=== PATIENT | female | born 1965 | race Caucasian/White ===

== ENCOUNTER 2024-03-28 09:55 | Outpatient (CLI) | payer OTHER, SELFPAY ==
--- OUTSIDE RECORDS SUMMARY | 2024-03-28 10:00 | XMS_ITS | Continuity of Care Document ---
Author Name Unknown Organization [facility] Address [address] [place] [address] Insurance Providers Payer Plan Claims Address Claims Phone Policy Number Group Number Relation Employer Guarantor Name Guarantor Guarantor Address Guarantor Phone Cigna [id number] Self Keisha Bob 1965 [address] [place] [address] [employer] [address], [place] [address] [id number] Self Keisha Bob [address] [place] [id number] Problems Unknown Problems Results No Results Allergies, adverse reactions, alerts No known allergies and adverse reactions Medications No administered medications reported Vital Signs Date Vital Result Comment 06/02/2023 Body Height [id number] m Body Weight 70.720901058519 kg Body Mass Index 24.28 kg/m2 Social History No smoking Hx information available
--- OUTSIDE RECORDS SUMMARY | 2024-03-28 10:00 | XMS_ITS | Clinical Summary ---
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 8 tablet 12/24/2021 Active Active Problems No known active problems Immunizations Name Administration Dates Next Due COVID-19 (Pfizer Limestone 12 yrs+) (CVX-208) 021,03/29/2021 Influenza (Flucelvax) MDCK, PF, quad (CVX-171) 1 Influenza PF Tri (CVX - 140) 08/25/2016 Influenza Tri (CVX - 141) 09/10/2015 Influenza, (Afluria Fluarix Flulaval Fluzone) quad, PF (CVX-150) 08/10/2020 Influenza, (Afluria Fluzone) quad, PF, 6-35 mo (CVX-161) 08/20/2017 Td, adsorbed, PF, adult, Lf, unspecified (CVX-19 6) 07/22/2015 Tdap (ADACEL BOOSTRIX) (CVX-115) 06/27/2010 Social History Tobacco Use Types Packs/Day Years Used Date Smoking Tobacco: Never Smokeless Tobacco: Never Alcohol Use Standard Drinks/Week Comments No 0 (1 standard drink = 0.6 oz pur e alcohol) Intimate Partner Violence Answer Date R ecorded Insults You Not on file 02/19/2021 Threatens You Not on file 02/19/2021 Screams at You Not on file 02/19/2021 Physically Hurt Not on file 02/19/2021 Intimate Partner Violence Score Not on file 02/19/2021 Alcohol Use Answer Date Recorded Alcohol Use Status No 12/24/2021 Stress Answer Date Recorded Stress in your Life Not on file 02/19/2021 Dealing with Stress Not on file 02/19/2021 Sex and Gender Information Value Date Recorded Sex Assigned at Female 12/23/2021 1:29 PM 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 Gender Identity Female 12/23/2021 1:29 PM 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 Sexual Orientation Not on file Last Filed Vital Signs Vital Sign Reading Time Taken Comments Blood Pressure 118/84 12/24/2021 10:03 AM 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 Pulse 79 12/24/2021 10:03 AM 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 Temperature 36.5 ??C (97.7 ??F) 12/24/2021 1 0:03 AM 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 Respiratory Rate 12 12/24/2021 10:0 3 AM 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 Oxygen Saturation 98% 12/24/2021 10: 03 AM 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 Inhaled Oxygen Concentration - - Weight 78.8 kg (173 lb 12.8 oz) 022 10:03 AM 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 Height 170.2 cm (5' 7) 12/24/2021 10:0 3 AM 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 Body Mass Index 27.22 12/24/2021 10:03 AM 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 Plan of Treatment Health Maintenance Due Date Last Done Comments Dental Cleaning/Exam 1965 Cervical Cancer Screening 1982 Hepatitis B Immunization (1 of 3 - 19+ 3-dose series) 1985 Colorectal Cancer Screening 1996 Zoster Immunization (1 of 2) 2016 Breast Cancer Screening 09/13/2020 09/13/2018 Covid-19 Immunization ( season) 2023 04/19/2021, 03/29/2021 Influenza Immunization (Season Ended) 2024 08/10/2020, 08/12/2018, 08/20/2017 Tetanus (Tdap or Td) Immunization 07/22/2025 07/22/2015, 06/27/2010 HIB Immunization Aged Out No longer e ligible based on patient's age to complete this topic HPV Immunization Aged Out No longer e ligible based on patient's age to complete this topic Hepatitis A Immunization Aged Out No longer eligible based on patient's age to complete this topic Pneumococcal: Ped (0 to 5 Yrs) and At-Risk Member (6 to 64 Yrs) Aged Out No longer eligible b ased on patient's age to complete this topic Polio Immunization Aged Out No longer eligible based on patient's age to complete this topic
--- OUTSIDE RECORDS SUMMARY | 2024-03-28 10:00 | XMS_ITS | Continuity of Care Document ---
Author Name Unknown Address [address] [place] [id number] Phone [phone] Organization [facility], [facility] Address [address] [facility] [address] [place] [address] Assessment No assessment recorded. Plan of Treatment Reminders Order Date Submit Date Provider Last Modified By Organization Details Last Modified Time Details Appointments Any 30 024 09:30AM HILARIA MARTINEZ AND, DO Not available Not available Not available Lab None record ed. Referral None record ed. Procedures None record ed. Surgeries None record ed. Imaging None record ed. Medication Orders None record ed. Patient TargetsNo targets recorded. Patient InstructionsNo instructions recorded. Reason for Referral Behavioral Health Tech Referral for Shahzad ateral tinnitus Patient has suffered with tinnitus x 1yr. Previous work-up without etiology. Please send results to Dr Hilaria [place], (fax) Referring Physician: Hilaria [place], Family Medicine, Encounter Date: 02/25/2024 Results Created Date Observation Date Name Description Value Unit Range Abnormal Flag LastModifiedBy Organization Detail LastModifiedTime 02/25/20 24 elect rocar diogr am No observ ation record ed. [email or web address] Not Available 2023 18:40:12 03/08/20 24 body compo sitio n jaspal sis (PROC ) No observ ation record ed. [email or web address] Not Available 03/10/2024 14:01:22 Result Notes None recorded. Procedures Surgical History Date Name Laterality Status Provider Name and Address Organization Details Recorded Time 11/09/19 12 Partial Hysterectomy completed HILARIA RANDOLPH DO [address] [place] [address],[address], [place], [address], [facility] 02/25/2024 14:29:35 11/09/19 12 oophorectomy completed HILARIA RANDOLPH [address] [place] [address],[facility], [place], [address], [facility] 02/25/2024 14:30:30 Imaging Results None recorded. Procedure Notes None recorded. Medical Equipment None Reported. Allergies No known drug allergies Medications Name Sig Start Date Stop Date Status Note LastModified by Organization Details LastModified Time prednisone 20 mg tablet TAKE 2 TABLETS (40 MG) BY MOUTH DAILY FOR 5 DAYS 02/24 completed Not Available Not Available Not Available albuterol sulfate HFA 90 mcg/actuati on aerosol inhaler Albuterol sulfate HFA (90mcg/pu ff): Inhale 2 puffs every 6 hours as needed for wheezing. If symptoms are severe, may use as often as every 4 hours.* active Not Available Not Available No t Available tobramycin 0.3 %-dexametha sone 0.1 % eye drops,suspe nsion INSTILL 1 DROP INTO LEFT EYE THREE TIMES A DAY FOR SEVEN DAYS 02/24 completed Not Available Not Available Not Available Paxlovid 300 mg (150 mg x 2)-100 mg tablets in a dose pack TAKE 2 TABLETS OF NIRMATREL VIR AND 1 TABLET OF RITONAVIR TWICE A DAY (MORNING AND EVENING) FOR 5 DAYS. TAKE ALL 3 TABLETS AT THE SAME TIME WITH OR WITHOUT FOOD. DO NOT CUT CRUSH OR CHEW TABLETS. TAKE EXACTLY DIRECTED. YOU MUST FINISH THE ENTIRE COURT OF MEDICATIO N EVEN IF YOU FEET BETTER AFTER THE FIRST FEW DAYS OF TREATMENT .* 02/24 completed Not Available Not Available Not Available Vitals None Recorded Social History Question Answer Notes LastModified by Organizat ion Details LastModified Time Tobacco Smoking Status Never Smoker HILARIA RANDOLPH [address] [place] [address],[facility], [place], [address], [facility] 02/25/2024 14:24:14 Do You Have An Advance Directive? Yes [email or web address] Information not available 02/25/2024 What Is Your Level Of Alcohol Consumption? Occasional [email or web address] Information not available 02/25/2024 How Many Times Per Week Do You Consume Alcohol? Less Than 1 Time Per Week [email or web address] Information not available 02/25/2024 Are You Blind Or Do You Have Difficulty Seeing? No Last Eye Exam Within The Year [email or web address] Information not available 02/25/2024 Is Blood Transfusion Acceptable In An Emergency? Yes [email or web address] Information not available 02/25/2024 What Is Your Level Of Caffeine Consumption? Occasional Tea, Not Coffee Option [email or web address] Information not available 02/25/2024 What Is Your Code Status? Full Code [email or web address] Information not available 02/25/2024 Are You Currently Employed? Yes [email or web address] Information not available 02/25/2024 Are You Deaf Or Do You Have Serious Difficulty Hearing? No [email or web address] Information not available 02/25/2024 What Type Of Diet Are You Following? REGULAR [email or web address] Information not available 02/25/2024 Do You Have A Directive To Physicians? No [email or web address] Information not available 02/25/2024 What Is The Highest Grade Or Level Of School You Have Completed Or The Highest Degree You Have Received? [id number] [id number] Information not available 02/25/2024 Who Is Your Employer? [employer] [email or web address] Information not available 02/25/2024 What Is Your Occupation? [employer] [email or web address] Information not available 02/25/2024 Which Of Your Hands Is Dominant? Right [email or web address] Information not available 02/25/2024 Do You Work In Healthcare? No [email or web address] Information not available 02/25/2024 Do You Have A Medical Power Of [employer] Products Assembler? No [email or web address] Information not available 02/25/2024 What Was The Date Of Your Most Recent Tobacco Screening? 02/25/2024 [email or web address] Information not available 02/25/2024 Do You Have A Patient Advocate? No [email or web address] Information not available 02/25/2024 What Is Your Relationship Status? [email or web address] Information not available 02/25/2024 Are You Sexually Active? Yes [email or web address] Information not available 02/25/2024 Do You Use Any Illicit Or Recreational Drugs? No [email or web address] Information not available 02/25/2024 Have You Recently Traveled Abroad? No [email or web address] Information not available 02/25/2024 Sex: Female Functional Status Question Answer Note LastModified by Organizat ion Details LastModified Time Do you have difficulty walking or climbing stairs? No [email or web address] Information not available 02/25/2024 Do you have transportation difficulties? No Information not available 02/25/2024 Are you able to walk? YESWOREST [email or web address] Information not available 02/25/2024 Do you have difficulty doing errands alone? No Information not available 02/25/2024 Are you able to care for yourself? Yes [email or web address] Information not available 02/25/2024 Do you have difficulty dressing or bathing? No [email or web address] Information not available 02/25/2024 Mental Status None recorded. Family History Relationship Description Onset Age of this Age Resolved Age Notes Father Parkinson's disease 62 Medical History Condition Response Headaches Y Gynecological History Statement/Question Response STIs/STDs N If Post Menopausal, Age at Menopause 46 HPV Vaccine N Sexual Problems? Y Age at First Child 23 Sexually Active? Y Obstetrics History GPAL:G 2 P 0 0 0 0 Past Encounters Encounter ID Performer Location Encounter Start Date Encounter Closed Date Diagnosis/Indication Diagnosis SNOMED-CT Code 43 HILARIA Adams, [facility] [address] [place] [id number] 02/16/2024 15:58:04 02/16/2024 18:02:26 Health Concerns Section Related Observation LastModified by Organization Detai ls LastModified Time None Recorded Concern Status LastModified by Organization Details LastModified Time None Recorded Payers Encounter Date Sequence Insurance Name Policy Number Policy Gonzalez Covered Member ID Gonzalez Member ID Guarantor Name 02/16/2024 1 *SELF PAY* Maryse Rojas Notes Date Note Type Note Provider Name and Address Organization Details Recorded Time 02/16/2024 text/html HPI Notes: Jacque is a 58yo patient who presents for a meet and greet to consider establishing care. She does not have current or acute concerns, however, she has been frustrated with lack of access and inability to follow-up with the same continuity physician. She currently is followed by [facility], but she has not recently scheduled her primary care visit or wellness visit. However, she reports that she is due for her care. In addition, she has had difficulty with recurrent sinusitis and tinnitus in the past. HILARIA RANDOLPH, [address] [place] [address],[address], [place], [address], [facility] 02/17/2024 15:25:19 OBGyn Episode No OBEpisode recorded.
--- OUTSIDE RECORDS SUMMARY | 2024-03-28 10:00 | XMS_ITS | Data Portability ---
Author Name Unknown Address [address] [place] [address] Phone [phone] Organization [place] [facility], [facility] Address [address] [place] [address] Assessment No assessment recorded. Plan of Treatment Reminders Order Date Submit Date Provider Last Modified By Organization Details Last Modified Time Details Appointments Any 30 2023 09:30A M VAUGHN MARTINEZ AND, DO Not available Not available Not available Lab CBC w/ auto diff 2023 024 [facility] [address] [place] [address], [address], 02/28/2024 23:06:00 CMP, serum or plasma [address] [facility], [address] [place] [address], [id number], 02/28/2024 23:06:01 TSH, ultra-se nsitive, serum 2023 024 [facility] [address] [place] [address], [address], 02/28/2024 23:06:04 vitamin D, 25-hydro xy, total, serum [address] [facility], [address] [place] [address], [address], 02/28/2024 23:06:03 lipid panel, serum [address] [facility], [address] [place] [address], [address], 02/28/2024 23:06:02 HbA1c (hemoglo bin A1c), blood 2023 024 [facility] [address] [place], [address], 02/28/2024 23:06:02 lipoprot ein a, qn, serum 2023 024 [facility] [address] [place], [address], 02/28/2024 23:06:03 apolipop rotein B (apo B), serum 2023 024 [facility] ([place] [address] [place], [address], 02/28/2024 23:06:04 hepatiti s C Ab, qual, IA, serum or plasma 2023 024 [email or web address] [address] [place], [address], 03/04/2024 14:48:54 multi-ca ncer early detectio n, targeted gene methylat ion analysis , plasma cell-ti e DNA 2023 024 [email or web address] Not available 02/25/2024 15:30:31 cytology study, smear or scraping , cervical or vaginal 2023 024 [facility] ([place] [address] [place], [address], 03/01/2024 16:09:02 Referral audiolog ist referral - Please send results to Dr Vaughn tillman, [phone] (fax) 2023 024 [facility], [address], [place], [address], 02/25/2024 16:13:09 Procedures colonosc opy screenin g (PROC) - Please send results to Dr Vaughn tillman, (fax). For any question s, call 2023 024 [facility], [address] [place], [address], 03/18/2024 10:33:28 Surgeries None recorded . Imaging None recorded . Medication Orders None recorded . Patient TargetsNo targets recorded. Patient InstructionsNo instructions recorded. 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 Previous work-up without etiology. Please send results to Dr Vaughn Randolph, (fax) Referring Physician: Vaughn Randolph, Family Medicine, Encounter Date: 02/25/2024 Results Created Date Observation Date Name Description Value Unit Range Abnormal Flag LastModifiedBy Organization Detail LastModifiedTime 02/25/20 24 02/27/2024 HCV ANTIB CARLENE hep C virus Ab Non Reacti ve non reacti ve Not Available [facility] ([facility]) [address] [facility], [place], [address], 02/27/2024 10:09:00 02/25/20 24 02/26/2024 ALTON EN AUTHO RIZAT ION written authorizatio n Rodolfo n Author izkeara n Receiv ed. Not Available [facility] ([facility]) [address] [facility], [place], [address], 02/27/2024 10:09:01 02/25/20 24 02/26/2024 CBC WITH DIFFE RENTI AL/PL ATELE T WBC 6.5 x10e3 /uL 3.4-10 .8 Not Available [facility] ([facility]) [address] [facility], [place], [address], 02/28/2024 23:06:00 02/25/20 24 02/26/2024 CBC WITH DIFFE RENTI AL/PL ATELE T RBC 5.05 x10e6 /uL 3.77-5 .28 Not Available [facility] ([facility]) [address] [facility], [place], [address], 02/28/2024 23:06:00 02/25/20 24 02/26/2024 CBC WITH DIFFE RENTI AL/PL ATELE T hemoglobin 14.7 g/dL 11.1-1 5.9 Not Available [facility] ([facility]) [address] [facility], [place], [address], 02/28/2024 23:06:00 02/25/20 24 02/26/2024 CBC WITH DIFFE RENTI AL/PL ATELE T hematocrit 45.0 % 34.0-4 6.6 Not Available [facility] ([facility]) [address] [place], [address], 02/28/2024 23:06:00 02/25/20 24 02/26/2024 CBC WITH DIFFE RENTI AL/PL ATELE T MCV 89 fL 79-97 Not Available [facility] ([facility]) [address] [place], [address], 02/28/2024 23:06:00 02/25/20 24 02/26/2024 CBC WITH DIFFE RENTI AL/PL ATELE T MCH 29.1 pg 26.6-3 3.0 Not Available [facility] ([facility]) [address] [place], [address], 02/28/2024 23:06:00 02/25/20 24 02/26/2024 CBC WITH DIFFE RENTI AL/PL ATELE T MCHC 32.7 g/dL 31.5-3 5.7 Not Available [facility] ([facility]) [address] [place], [address], 02/28/2024 23:06:00 02/25/20 24 02/26/2024 CBC WITH DIFFE RENTI AL/PL ATELE T RDW 12.5 % 11.7-1 5.4 Not Available [facility] ([facility]) [address] [facility], [place], [address], 02/28/2024 23:06:00 02/25/20 24 02/26/2024 CBC WITH DIFFE RENTI AL/PL ATELE T platelets 181 x10e3 /uL 150-45 0 Not Available [facility] ([facility]) [address] [facility], [place], [address], 02/28/2024 23:06:00 02/25/20 24 02/26/2024 CBC WITH DIFFE RENTI AL/PL ATELE T neutrophils 44 % not estab. Not Available [facility] ([facility]) [address] [facility], [place], [address], 02/28/2024 23:06:00 02/25/20 24 02/26/2024 CBC WITH DIFFE RENTI AL/PL ATELE T lymphs 41 % not estab. Not Available [facility] ([facility]) [address] [facility], [place], [address], 02/28/2024 23:06:00 02/25/20 24 02/26/2024 CBC WITH DIFFE RENTI AL/PL ATELE T monocytes 8 % not estab. Not Available [facility] ([facility]) [address] [facility], [place], [address], 02/28/2024 23:06:00 02/25/20 24 02/26/2024 CBC WITH DIFFE RENTI AL/PL ATELE T eos 6 % not estab. Not Available [facility] ([facility]) [address] [place], [address], 02/28/2024 23:06:00 02/25/20 24 02/26/2024 CBC WITH DIFFE RENTI AL/PL ATELE T basos 1 % not estab. Not Available [facility] ([facility]) [address] [facility], [place], [address], 02/28/2024 23:06:00 02/25/20 24 02/26/2024 CBC WITH DIFFE RENTI AL/PL ATELE T immature cells MORTICIAN SUPPLIES SALES REPRESENTATIVE Not Available [facility] ([facility]) [address] [facility], [place], [address], 02/28/2024 23:06:00 02/25/20 24 02/26/2024 CBC WITH DIFFE RENTI AL/PL ATELE T neutrophils (absolute) 2.9 x10e3 /uL 1.4-7. 0 Not Available [facility] ([facility]) [address] [facility], [place], [address], 02/28/2024 23:06:00 02/25/20 24 02/26/2024 CBC WITH DIFFE RENTI AL/PL ATELE T lymphs (absolute) 2.7 x10e3 /uL 0.7-3. 1 Not Available [facility] ([facility]) [address] [place], [address], 02/28/2024 23:06:00 02/25/20 24 02/26/2024 CBC WITH DIFFE RENTI AL/PL ATELE T monocytes(ab solute) 0.5 x10e3 /uL 0.1-0. 9 Not Available [facility] ([facility]) [address] [place], [address], 02/28/2024 23:06:00 02/25/20 24 02/26/2024 CBC WITH DIFFE RENTI AL/PL ATELE T eos (absolute) 0.4 x10e3 /uL 0.0-0. 4 Not Available [facility] ([facility]) [address] [place], [address], 02/28/2024 23:06:00 02/25/20 24 02/26/2024 CBC WITH DIFFE RENTI AL/PL ATELE T baso (absolute) 0.1 x10e3 /uL 0.0-0. 2 Not Available [facility] ([facility]) [address] [facility], [place], [address], 02/28/2024 23:06:00 02/25/20 24 02/26/2024 CBC WITH DIFFE RENTI AL/PL ATELE T immature granulocytes 0 % not estab. Not Available [facility] ([facility]) [address] [facility], [place], [address], 02/28/2024 23:06:00 02/25/20 24 02/26/2024 CBC WITH DIFFE RENTI AL/PL ATELE T immature grans (abs) 0.0 x10e3 /uL 0.0-0. 1 Not Available [facility] ([facility]) [address] [facility], [place], [address], 02/28/2024 23:06:00 02/25/20 24 02/26/2024 CBC WITH DIFFE RENTI AL/PL ATELE T NRBC MORTICIAN SUPPLIES SALES REPRESENTATIVE Not Available [facility] ([facility]) [address] [facility], [place], [address], 02/28/2024 23:06:00 02/25/20 24 02/26/2024 CBC WITH DIFFE RENTI AL/PL ATELE T hematology comments: MORTICIAN SUPPLIES SALES REPRESENTATIVE Not Available [facility] ([facility]) [address] [place], [address], 02/28/2024 23:06:00 02/25/20 24 02/26/2024 COMP. METAB OLIC PANEL (14) glucose 92 mg/dL 70-99 Not Available [facility] ([facility]) [address] [place], [address], 02/28/2024 23:06:01 02/25/20 24 02/26/2024 COMP. METAB OLIC PANEL (14) BUN 19 mg/dL 6-24 Not Available [facility] ([facility]) [address] [place], [address], 02/28/2024 23:06:01 02/25/20 24 02/26/2024 COMP. METAB OLIC PANEL (14) creatinine 1.21 mg/dL 0.57-1 .00 above high normal Not Available [facility] ([facility]) [address] [facility], [place], [address], 02/28/2024 23:06:01 02/25/20 24 02/26/2024 COMP. METAB OLIC PANEL (14) eGFR 52 mL/mi n/1.7 3 >59 below low normal Not Available [facility] ([facility]) [address] [facility] [place], [address], 02/28/2024 23:06:01 02/25/20 24 02/26/2024 COMP. METAB OLIC PANEL (14) BUN/creatini ne ratio 16 9-23 Not Available [facility] ([facility]) [address] [facility], [place], [address], 02/28/2024 23:06:01 02/25/20 24 02/26/2024 COMP. METAB OLIC PANEL (14) sodium 138 mmol/ L 134-14 4 Not Available [facility] ([facility]) [address] [facility], [place], [address], 02/28/2024 23:06:01 02/25/20 24 02/26/2024 COMP. METAB OLIC PANEL (14) potassium 4.2 mmol/ L 3.5-5. 2 Not Available [facility] ([facility]) [address] [facility] [place], [address], 02/28/2024 23:06:01 02/25/20 24 02/26/2024 COMP. METAB OLIC PANEL (14) chloride 100 mmol/ L 96-106 Not Available [facility] ([facility]) [address] [facility] [place], [address], 02/28/2024 23:06:01 02/25/20 24 02/26/2024 COMP. METAB OLIC PANEL (14) carbon dioxide, total 23 mmol/ L 20-29 Not Available [facility] ([facility]) [address], [place], [address], 02/28/2024 23:06:01 02/25/20 24 02/26/2024 COMP. METAB OLIC PANEL (14) calcium 9.8 mg/dL 8.7-10 .2 Not Available [facility] ([facility]) [address] [facility], [place], [address], 02/28/2024 23:06:01 02/25/20 24 02/26/2024 COMP. METAB OLIC PANEL (14) protein, total 7.2 g/dL 6.0-8. 5 Not Available [facility] ([facility]) [address] [facility], [place], [address], 02/28/2024 23:06:01 02/25/20 24 02/26/2024 COMP. METAB OLIC PANEL (14) albumin 4.6 g/dL 3.8-4. 9 Not Available [facility] ([facility]) [address] [facility], [place], [address], 02/28/2024 23:06:01 02/25/20 24 02/26/2024 COMP. METAB OLIC PANEL (14) globulin, total 2.6 g/dL 1.5-4. 5 Not Available [facility] ([facility]) [address] [facility], [place], [address], 02/28/2024 23:06:01 02/25/20 24 02/26/2024 COMP. METAB OLIC PANEL (14) A/G ratio 1.8 1.2-2. 2 Not Available [facility] ([facility]) [address] [facility], [place], [address], 02/28/2024 23:06:01 02/25/20 24 02/26/2024 COMP. METAB OLIC PANEL (14) bilirubin, total 0.5 mg/dL 0.0-1. 2 Not Available [facility] ([facility]) [address] [facility] [place], [address], 02/28/2024 23:06:01 02/25/20 24 02/26/2024 COMP. METAB OLIC PANEL (14) alkaline phosphatase 99 IU/L 44-121 Not Available [facility] ([facility]) [address] [facility] [place], [address], 02/28/2024 23:06:01 02/25/20 24 02/26/2024 COMP. METAB OLIC PANEL (14) AST (SGOT) 20 IU/L 0-40 Not Available [facility] ([facility]) [address] [facility] [place], [address], 02/28/2024 23:06:01 02/25/20 24 02/26/2024 COMP. METAB OLIC PANEL (14) ALT (SGPT) 21 IU/L 0-32 Not Available [facility] ([facility]) [address] [place], [address], 02/28/2024 23:06:01 02/25/20 24 02/26/2024 LIPID PANEL cholesterol, total 216 mg/dL 100-19 9 above high normal Not Available [facility] ([facility]) [address] [place], [address], 02/28/2024 23:06:02 02/25/20 24 02/26/2024 LIPID PANEL triglyceride s 110 mg/dL 0-149 Not Available [facility] ([facility]) [address] [place], [address], 02/28/2024 23:06:02 02/25/20 24 02/26/2024 LIPID PANEL HDL cholesterol 58 mg/dL >39 Not Available [facility] ([facility]) [address] [place], [address], 02/28/2024 23:06:02 02/25/20 24 02/26/2024 LIPID PANEL VLDL cholesterol fiordaliza 20 mg/dL 5-40 Not Available [facility] ([facility]) [address] [place], [address], 02/28/2024 23:06:02 02/25/20 24 02/26/2024 LIPID PANEL LDL chol calc ([facility]) 138 mg/dL 0-99 above high normal Not Available [facility] ([facility]) [address] [place], [address], 02/28/2024 23:06:02 02/25/20 24 02/26/2024 LIPID PANEL comment: MORTICIAN SUPPLIES SALES REPRESENTATIVE Not Available [facility] ([facility]) [address] [place], [address], 02/28/2024 23:06:02 02/25/20 24 02/26/2024 HEMOG LOBIN A1C hemoglobin A1C 5.7 % 4.8-5. 6 above high normal Not Available [facility] ([facility]) [address] [place], [address], 02/28/2024 23:06:02 02/25/20 24 02/26/2024 VITAM IN D, 25-HY DROXY vitamin D, 25-hydroxy 38.3 NG/mL 30.0-1 00.0 Not Available [facility] ([facility]) [address] [place], [address], 02/28/2024 23:06:03 02/25/20 24 02/28/2024 LIPOP ROTEI N (A) lipoprotein (A) 24.2 nmol/ L <75.0 Not Available [facility] ([facility]) [address] [place], [address], 02/28/2024 23:06:03 02/25/20 24 02/26/2024 TSH RFX ON ABNOR MAL TO FREE T4 TSH 2.910 uIU/m L 0.450- 4.500 Not Available [facility] ([facility]) [address] [facility], [place], [address], 02/28/2024 23:06:04 02/25/20 24 02/26/2024 APOLI POPRO TEIN B apolipoprote in B 112 mg/dL <90 above high normal Not Available [facility] ([facility]) [address] [facility], [place], [address], 02/28/2024 23:06:04 02/25/20 24 02/26/2024 IGP, APT HPV,R FX 16/18 ,45 HPV aptima Negati ve negati ve Not Available [facility] (Lab) [address] [place] [address], [place], [address], 03/01/2024 16:09:02 02/25/20 24 03/01/2024 IGP, APT HPV,R FX 16/18 ,45 diagnosis: NEGATI VE FOR INTRAE PITHEL IAL LESION OR MALIGN MIGUEL ÁNGEL. Not Available [facility] (Lab) [address] [address], [place], [address], 03/01/2024 16:09:02 02/25/20 24 03/01/2024 IGP, APT HPV,R FX 16/18 ,45 specimen adequacy: Satisf actory for evalua tion. Endoce rvical compon ent may not be Not Available [facility] (Lab) [address] [address], [place], [address], 03/01/2024 16:09:02 02/25/20 24 03/01/2024 IGP, APT HPV,R FX 16/18 ,45 clinician provided ICD10: Z12.4 Not Available [facility] (Lab) [address] [address], [place], [address], 03/01/2024 16:09:02 02/25/20 24 03/01/2024 IGP, APT HPV,R FX 16/18 ,45 performed by: Jean-Claude Nunn Sr, Cytote chnolo gist (ASCP) Not Available [facility] (Lab) [address] [facility] [address], [place], [address], 03/01/2024 16:09:02 02/25/20 24 03/01/2024 IGP, APT HPV,R FX 16/18 ,45 . . Not Available [facility] (Lab) [address] [facility] [address], [place], [address], 03/01/2024 16:09:02 02/25/20 24 03/01/2024 IGP, APT HPV,R FX 16/18 ,45 note: The Pap smear is a screen ing test design ed to aid in the detect ion of Not Available [facility] (Lab) [address] [facility] [address], [place], [address], 03/01/2024 16:09:02 02/25/20 24 03/01/2024 IGP, APT HPV,R FX 16/18 ,45 test methodology: This liquid based ThinPr ep(R) pap test was screen ed with the Not Available [facility] (Lab) [address] [place] [address], [place], [address], 03/01/2024 16:09:02 02/25/20 24 elect rocar diogr am No observ ation record ed. [email or web address] Not Available 2023 18:40:12 03/08/20 24 body compo sitio n jaspal sis (PROC ) No observ ation record ed. [email or web address] Not Available 03/10/2024 14:01:22 Result Notes Documentation Provider Name and Address Organization Details Recorded Time Pdf Report : NIL/HPV negative VAUGHN RANDOLPH DO [address] [place] [address],[address], [place], [address], [facility] 03/01/2024 16:39:17 Procedures Surgical History Date Name Laterality Status Provider Name and Address Organization Details Recorded Time 11/09/19 12 Partial Hysterectomy completed VAUGHN RANDOLPH DO [address] [place] [address],[address], [place], [address], [facility] 02/25/2024 14:29:35 11/09/19 12 oophorectomy completed VAUGHN RANDOLPH DO [address] [place] [address],[address], [place], [address], [facility] 02/25/2024 14:30:30 Imaging Results Imaging Date Name Status LastModified by Organization Details LastModified Time 02/25/2024 electrocardiogram completed [email or web address] In formation not available 02/25/2024 18:40:12 03/08/2024 body composition analysis (PROC) completed [facility] Information not available 03/10/2024 14:01:22 Procedure Notes None recorded. Medical Equipment None [...] Not Available Not Available Not Available Vitals Date Recorded Body height Heart rate Respiratory rate Body temperature Oxygen saturation Oxygen saturation in Arterial blood by Pulse oximetry Body mass index (BMI) Body weight Systolic blood pressure Diastolic blood pressure Systolic blood pressure Diastolic blood pressure Provider Name and Address Organization Details Last Updated DateTime 170.18 cm 74 /min 16 /min 98.2 [degF] 98 % 98 % 26.2 kg/m2 68825.9 3 g 150 mm[Hg] 91 mm[Hg] 127 mm[Hg] 84 mm[Hg] BlancaSilvina Howardareli [facility] 16:26:46 Social History Question Answer Notes LastModified by Organizat ion Details LastModified Time Tobacco Smoking Status Never Smoker VAUGHN TOMASA, DO [address] [place] [address],[address], [place], [address], [facility] 02/25/2024 14:24:14 Do You Have An Advance Directive? Yes [email or web address] Information not available 02/25/2024 What Is Your Level Of Alcohol Consumption? Occasional [email or web address] Information not available 02/25/2024 How Many Times Per Week Do You Consume Alcohol? Less Than 1 Time Per Week [email or web address] Information not available 02/25/2024 Are You Blind Or Do You Have Difficulty Seeing? No Last Eye Exam Within The Year [email or web address] Information not available 02/25/2024 Is Blood Transfusion Acceptable In An Emergency? Yes [email or web address] Information not available 02/25/2024 What Is Your Level Of Caffeine Consumption? Occasional Tea, Not Coffee Option [email or web address] Information not available 02/25/2024 What Is Your Code Status? Full Code [email or web address] Information not available 02/25/2024 Are You Currently Employed? Yes [email or web address] Information not available 02/25/2024 Are You Deaf Or Do You Have Serious Difficulty Hearing? No [email or web address] Information not available 02/25/2024 What Type Of Diet Are You Following? REGULAR [email or web address] Information not available 02/25/2024 Do You Have A Directive To Physicians? No [email or web address] Information not available 02/25/2024 What Is The Highest Grade Or Level Of School You Have Completed Or The Highest Degree You Have Received? WE63391-8 [email or web address] Information not available 02/25/2024 Who Is Your Employer? 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 Right Information not available 02/25/2024 Do You Work In Healthcare? No [email or web address] Information not available 02/25/2024 Do You Have A Medical Power Of Manager Hair? No [email or web address] Information not available 02/25/2024 What Was The Date Of Your Most Recent Tobacco Screening? 02/25/2024 [email or web address] Information not available 02/25/2024 Do You Have A Patient Advocate? No [email or web address] Information not available 02/25/2024 What Is Your Relationship Status? [email or web address] Information not available 02/25/2024 Are You Sexually Active? Yes [email or web address] Information not available 02/25/2024 Do You Use Any Illicit Or Recreational Drugs? No [email or web address] Information not available 02/25/2024 Have You Recently Traveled Abroad? No [email or web address] Information not available 02/25/2024 Sex: Female Functional Status Question Answer Note LastModified by Organizat ion Details LastModified Time Do you have difficulty walking or climbing stairs? No [email or web address] Information not available 02/25/2024 Do you have transportation difficulties? No [email or web address] Information not available 02/25/2024 Are you able to walk? YESWOREST [email or web address] Information not available 02/25/2024 Do you have difficulty doing errands alone? No [email or web address] Information not available 02/25/2024 Are you able to care for yourself? Yes [email or web address] Information not available 02/25/2024 Do you have difficulty dressing or bathing? No [email or web address] Information not available 02/25/2024 Mental Status None [...] Closed Date Diagnosis/Indication Diagnosis SNOMED-CT Code 43 VAUGHN OBANDO ND, DO [facility] [address] [facility] [address] [place] [address] 02/16/2024 15:58:04 02/16/2024 18:02:26 145 VAUGHN OBANDO ND, DO [facility] [address] [facility] [address] [place] [address] 02/25/2024 14:00:50 02/25/2024 15:41:38 Adult health examination [id number] Screening for malignant neoplasm of cervix [id number] Screening for malignant neoplasm of colon 629462453 Bilateral tinnitus 21059 [id number] Health Concerns Section Related Observation LastModified by Organization Detai ls LastModified Time None Recorded Concern Status LastModified by Organization Details LastModified Time None Recorded Advance Directives Directive Y: Payers Encounter Date Sequence Insurance Name Policy Number Policy Gonzalez Covered Member ID Gonzalez Member ID Guarantor Name 02/25/2024 1 [facility] [id number] Jacque Rojas [id number] 1 Jacque Rojas 02/16/2024 1 *SELF PAY* Maryse Rojas Notes [...] recurrent sinusitis and tinnitus in the past. VAUGHN RANDOLPH DO [address] [place] [address],[address], [place], [address], [facility] 02/17/2024 15:25:19 02/25/2024 text/html HPI Notes: Care Management - General Reported by patient. Notes: AnkushSay Breast Cancer Risk Assessment Data- Age:28 Height: Weight: Age at menarche: 15 Number of Children: 2 Age at first child: 23 Menopausal Status: Menopause Age at Menopause: 46 Breast Density: Breast Biopsy: Never Personal history of ovarian cancer: N Use of hormone replacement therapy: Y Hormone Therapy: Estrogen Length of hormone therapy: 1yr Ashkenazi Inheritance: Y Number of sisters (include ages if living): 2 (63, 65) Number of maternal and paternal aunts (include ages if living): M (82D) D (90) Maternal and paternal grandmothers' ages (if living): (70)D (75)M Number of daughters (include ages if living): 34 Family history in above family members (including breast and ovarian cancer): M (50) Other family history (half sisters, cousins, nieces, male relatives): Asif Santillan is a 58yo patient who presents for her annual wellness exam. She has no known medical problems. She has not been gaining weight over the past year and is considered normal weight. The patient reports exercising regularly with walking daily. She enjoys golf and pickle ball. She occasionally does free-weights once weekly. The patient reports monitoring dietary intake, with 80/20 goals of 80% health and 20% 'fun'. The patient reports tolerating PO intake and appetite has not decreased. She has not had labs performed prior to exam. For health care maintenance: PAP/HPV: Due today. Mammogram: Approx 4yrs prior, due for repeat. DEXA: Due at age 66, per recent recommendations. Colonoscopy: Not previously performed, ([place]) Lung Cancer Screening: Not indicated. Hep C Screening: Due today. The patient denies acute concerns, but reports she has had tinnitus for approximately 1yr. The symptoms are worse when she is lying down. She reports chronic sinusitis. The patient reports her last episode was approximately 1yr prior. The patient states that after that, she developed the tinnitus. She has previously had evaluation(Referral for tinnitus). The patient has known h/o parkinson gene positive. The patient reports that she does occasionally have difficulty with sleep. She sometimes have difficulties with falling asleep and staying asleep. The patient goes to bed at 10pm and wakes around 6am. The patient states she attempts to avoid blue light at bedtime. FH/SH/PMH/PSH - Patient is a non-smoker. The patient reports rare EtOH use. The patient denies illicit substance use; otherwise reviewed in chart provided. Additional records reviewed from previous provider. Medications/Allergi es reviewed and entered by nursing. Vitals reviewed, as noted. VAUGHN RANDOLPH DO [address] [place] [address],[address], [place], [address], [facility] 02/25/2024 18:36:55 OBGyn Episode No OBEpisode recorded.
--- OUTSIDE RECORDS SUMMARY | 2024-03-28 10:00 | XMS_ITS | Continuity of Care Document ---
Author Name Unknown Address [address] [place] [address] Phone [phone] Organization [facility], [facility] Address [address] [place] [address] Assessment No assessment recorded. Plan of Treatment Reminders Order Date Submit Date Provider Last Modified By Organization Details Last Modified Time Details Appointments Any 30 2023 09:30A M HILARIA MARTINEZ AND, DO Not available Not available Not available Lab CBC w/ auto diff 2023 024 [facility]), [address] [place] [address], [id number], 02/28/2024 23:06:00 CMP, serum or plasma [address] [facility], [address] [place] [address], [id number], 02/28/2024 23:06:01 TSH, ultra-se nsitive, serum [address] [facility], [address] [place] [address], [address], 02/28/2024 23:06:04 vitamin D, 25-hydro xy, total, serum [address] [facility], [address] [place] [address], [id number], 02/28/2024 23:06:03 lipid panel, serum [address] [facility], [address] [place] [address], [address], 02/28/2024 23:06:02 HbA1c (hemoglo bin A1c), blood 2023 024 [facility] [address] [place], [address], 02/28/2024 23:06:02 lipoprot ein a, qn, serum 2023 024 EDGARTON [facility] ([place] [address] [place], [address], 02/28/2024 23:06:03 apolipop rotein B (apo B), serum 2023 024 [facility] ([place]), [address] [place], [address], 02/28/2024 23:06:04 hepatiti s C Ab, qual, IA, serum or plasma 2023 024 [email or web address] [facility] ([place]), [address] [place], [address], 03/04/2024 14:48:54 multi-ca ncer early detectio n, targeted gene methylat ion analysis , plasma cell-ti e DNA 2023 024 [email or web address] Not available 02/25/2024 15:30:31 cytology study, smear or scraping , cervical or vaginal 2023 024 [facility] ([place]), [address] [place], [address], 03/01/2024 16:09:02 Referral audiolog ist referral - Please send results to Dr Hilaria tillman, (fax) 2023 024 [facility], [address], [place], [address], 02/25/2024 16:13:09 Procedures colonosc opy screenin g (PROC) - Please send results to Dr Hilaria tillman, (fax). For any question s, call [phone] 2023 024 [facility] General Surgery, [address] [place], [address], 03/18/2024 10:33:28 Surgeries None recorded . Imaging None recorded . Medication Orders None recorded . Patient TargetsNo targets recorded. Patient InstructionsNo instructions recorded. 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 Previous work-up without etiology. Please send results to Dr Hilaria Randolph, (fax) Referring Physician: Hilaria Randolph, Family Medicine, Encounter Date: 02/25/2024 Results Created Date Observation Date Name Description Value Unit Range Abnormal Flag LastModifiedBy Organization Detail LastModifiedTime 02/25/20 24 elect rocar diogr am No observ ation record ed. [email or web address] Not Available 2023 18:40:12 03/08/20 24 body compo sitio n jaspal sis (PROC ) No observ ation record ed. [email or web address] Not Available 03/10/2024 14:01:22 Result Notes None recorded. Procedures Surgical History Date Name Laterality Status Provider Name and Address Organization Details Recorded Time 11/09/19 12 Partial Hysterectomy completed HILARIA RANDOLPH DO [address] [place] [address],[address], [place], [address], [facility] 02/25/2024 14:29:35 11/09/19 12 oophorectomy completed HILARIA RANDOLPH DO [address] [place] [address],[facility] [address], [place], [address], [facility] 02/25/2024 14:30:30 Imaging Results None recorded. Procedure [...] and Address Organization Details Last Updated DateTime 4 170.18 cm 74 /min 16 /min 98.2 [degF] 98 % 98 % 26.2 kg/m2 91356.9 3 g 150 mm[Hg] 91 mm[Hg] 127 mm[Hg] 84 mm[Hg] Blanca [facility] 4 16:26:46 Social History Question Answer Notes LastModified by Organizat ion Details LastModified Time Tobacco Smoking Status Never Smoker HILARIA RANDOLPH DO [address] [place] [address],[address], [place], [address], [facility] 02/25/2024 14:24:14 Do You Have An Advance Directive? Yes [email or web address] Information not available 02/25/2024 What Is Your Level Of Alcohol Consumption? Occasional [email or web address] Information not available 02/25/2024 How Many Times Per Week Do You Consume Alcohol? Less Than 1 Time Per Week [email or web address] Information not available 02/25/2024 Are You Blind Or Do You Have Difficulty Seeing? No Last Eye Exam Within The Year [email or web address] Information not available 02/25/2024 Is Blood Transfusion Acceptable In An Emergency? Yes [email or web address] Information not available 02/25/2024 What Is Your Level Of Caffeine Consumption? Occasional Tea, Not Coffee Option [email or web address] Information not available 02/25/2024 What Is Your Code Status? Full Code [email or web address] Information not available 02/25/2024 Are You Currently Employed? Yes [email or web address] Information not available 02/25/2024 Are You Deaf Or Do You Have Serious Difficulty Hearing? No [email or web address] Information not available 02/25/2024 What Type Of Diet Are You Following? REGULAR [email or web address] Information not available 02/25/2024 Do You Have A Directive To Physicians? No [email or web address] Information not available 02/25/2024 What Is The Highest Grade Or Level Of School You Have Completed Or The Highest Degree You Have Received? [id number] [email or web address] Information not available 02/25/2024 Who Is Your Employer? 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 Right [email or web address] Information not available 02/25/2024 Do You Work In Healthcare? No [email or web address] Information not available 02/25/2024 Do You Have A Medical Power Of Driving Instructor? No [email or web address] Information not available 02/25/2024 What Was The Date Of Your Most Recent Tobacco Screening? 02/25/2024 [email or web address] Information not available 02/25/2024 Do You Have A Patient Advocate? No [email or web address] Information not available 02/25/2024 What Is Your Relationship Status? Information not available 02/25/2024 Are You Sexually Active? Yes [email or web address] Information not available 02/25/2024 Do You Use Any Illicit Or Recreational Drugs? No gpszxdnjkuqwk89 Information not available 02/25/2024 Have You Recently Traveled Abroad? No [email or web address] Information not available 02/25/2024 Sex: Female Functional Status Question Answer Note LastModified by Organizat ion Details LastModified Time Do you have difficulty walking or climbing stairs? No [email or web address] Information not available 02/25/2024 Do you have transportation difficulties? No hlxbtxkfkzimq81 Information not available 02/25/2024 Are you able to walk? YESWOREST cipvibqhdydij67 Information not available 02/25/2024 Do you have difficulty doing errands alone? No Information not available 02/25/2024 Are you able to care for yourself? Yes osvsqbmpavabu46 Information not available 02/25/2024 Do you have difficulty dressing or bathing? No [email or web address] Information not available 02/25/2024 Mental Status None [...] Date Diagnosis/Indication Diagnosis SNOMED-CT Code 43 HILARIA OBANDO ND, DO [address] [address] 02/16/2024 15:58:04 02/16/2024 18:02:26 145 HILARIA OBANDO ND, DO [address] [address] 02/25/2024 14:00:50 02/25/2024 15:41:38 Adult health examination [id number] Screening for malignant neoplasm of cervix 477144054 Screening for malignant neoplasm of colon [id number] Bilateral tinnitus 37372 [id number] Health Concerns Section Related Observation LastModified by Organization Detai ls LastModified Time None Recorded Concern Status LastModified by Organization Details LastModified Time None Recorded Payers Encounter Date Sequence Insurance Name Policy Number Policy Gonzalez Covered Member ID Gonzalez Member ID Guarantor Name 02/25/2024 1 [facility] [id number] Jacque Rojas [id number] Jacque Rojas Notes Date Note Type Note Provider Name and Address Organization Details Recorded Time 02/25/2024 text/html HPI Notes: Care Management - General Reported by patient. Notes: [place] Breast Cancer Risk Assessment Data- Age:28 Height: [...] per recent recommendations. Colonoscopy: Not previously performed, ([place]) Lung Cancer Screening: Not indicated. Hep C [...] entered by nursing. Vitals reviewed, as noted. HILARIA RANDOLPH, [address] [place] [address],[address], [place], [address], [facility] 02/25/2024 18:36:55 OBGyn Episode No OBEpisode recorded.
--- NOTE | 2024-03-28 11:31 | W.ANESCHARGE ---
Anesthesia Charges Start Date/Time Anesthesia Start Date: 03/28/24 Anesthesia Start Time: 10:54 Stop Date/Time Anesthesia Stop Date: 03/28/24 Anesthesia Stop Time: 11:27
--- NOTE | 2024-03-28 11:43 | W.ANESCHARGE ---
Anesthesia Charges Start Date/Time Anesthesia Start Date: 03/28/24 Anesthesia Start Time: 10:54 Stop Date/Time Anesthesia Stop Date: 03/28/24 Anesthesia Stop Time: 11:27
== END 2024-03-28 09:56 | disposition home or self-care (01) ==
PROVIDERS: PCP Family Medicine; Visit Provider Surgery
DX: Z12.11 Encounter for screening for malignant neoplasm of colon (principal); K63.5 Polyp of colon; K62.1 Rectal polyp
CPT/HCPCS: 00811; 45385; 88305; J2704

== ENCOUNTER 2024-10-17 06:21 | Outpatient (CLI) | payer OTHER, SELFPAY ==
--- OUTSIDE RECORDS SUMMARY | 2024-10-17 06:24 | XMS_ITS | Clinical Summary ---
Author Organization [facility] Address [address] [place] [address] Phone [email or web address] [email or web address] Care Process Tech Name Role Phone Unavailable Primary Care Provider Unavailabl e Allergies No known active allergies Medications predniSONE (DELTASONE) 20 MG tabletIndication s:Cough variant asthma Take 1 tablet (20 mg total) by mouth 2 (two) times a day. 8 tablet 12/24/2021 Active Active Problems No known active problems Immunizations Name Administration Dates Next Due COVID-[address] (Pfizer [place] 12 yrs+) (CVX-208) 021,03/29/2021 Influenza (Flucelvax) MDCK, PF, quad (CVX-171) 1 Influenza multi-dose VIAL (A fluria,Fluzone) trivalent (CVX-141) 09/10/2015 Influenza single-dose SYRING E (Afluria, Fluarix, Fluzone, Flulaval) trivalent (CVX-140) 08/25/2016 Influenza, (Afluria Fluarix Flulaval Fluzone) quad, PF [...] Dealing with Stress Not on file 02/19/2021 Comments No Sex and Gender Information Value Date Recorded Sex Assigned at Female 12/23/2021 1:29 PM GEM CARVER Legal Sex Female 7:54 AM CDT Gender Identity Female 12/23/2021 1:29 PM GEM CARVER Sexual Orientation Not on file Last Filed Vital Signs Vital Sign Reading Time Taken Comments Blood Pressure 118/84 12/24/2021 10:03 AM GEM CARVER Pulse 79 12/24/2021 10:03 AM GEM CARVER Temperature 36.5 C (97.7 F) 12/24/2021 10:03 AM GEM CARVER Respiratory Rate 12 12/24/2021 10:0 3 AM GEM CARVER Oxygen Saturation 98% 12/24/2021 10: 03 AM GEM CARVER Inhaled Oxygen Concentration - - Weight 78.8 kg (173 lb 12.8 oz) 022 10:03 AM GEM CARVER Height 170.2 cm (5' 7) 12/24/2021 10:0 3 AM GEM CARVER Body Mass Index 27.22 12/24/2021 10:03 AM GEM CARVER Plan of Treatment Health Maintenance Due Date Last Done Comments Dental Cleaning/Exam 1966 Cervical Cancer Screening 1982 Hepatitis B Immunization (1 of 3 - 19+ 3-dose series) 1985 Colorectal Cancer Screening 1996 Tetanus Diphtheria and Pertussis Immunization (2 - Td or Tdap) 07/25/2010 06/27/2010 Zoster Immunization (1 of 2) 2016 Breast Cancer Screening 09/13/2020 09/13/2018 Covid-19 Immunization ( - season) 2024 04/19/2021, 03/29/2021 Influenza Immunization (#1) 2024 10/0 12/2019, 08/12/2018, 08/20/2017, Additional history exists Tetanus (Tdap or Td) Immunization 07/22/2025 07/22/2015, [...] 64 Yrs) Aged Out No longer eligible based on patient's age to complete this topic Polio Immunization Aged Out No longer eligible based on patient's age to complete this topic Insurance [facility] Address: [facility] [id number] [place] [address]
--- OUTSIDE RECORDS SUMMARY | 2024-10-17 06:24 | XMS_ITS | Data Portability ---
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 Plan of Treatment Reminders Order Date Submit Date Provider Last Modified By Organization Details Last Modified Time Details Appointments None recorded. Lab CBC w/ auto diff 2023 024 [place] [facility] [address] [place], [address], 4 23:06:00 CMP, serum or plasma 2023 024 [place] [facility] [address] [place], [address], 4 23:06:01 TSH, ultra-sen sitive, serum 2023 024 [place] [facility] [address] [place], [address], 4 23:06:04 vitamin D, 25-hydrox y, total, serum 2023 024 [place] [facility] [address] [place], [address], 4 23:06:03 lipid panel, serum 2023 024 [place] [facility] ([facility] [address] [place], [address], 4 23:06:02 HbA1c (hemoglob in A1c), blood 2023 024 [place] [facility] ([facility] [address] [place], [address], 4 23:06:02 lipoprote in a, qn, serum 2023 024 [place] [facility] ([facility] [address] [place], [address], 4 23:06:03 apolipopr otein B (apo B), serum 2023 024 [place] [facility] [address] [place], [address], 4 23:06:04 hepatitis C Ab, qual, IA, serum or plasma 2023 024 [email or web address] [facility] ([facility] [address] [place], [address], 4 14:48:54 multi-can cer early detection , targeted gene methylati on analysis, plasma cell-free DNA 2023 024 [email or web address] Not available 4 15:30:31 cytology study, smear or scraping, cervical or vaginal 2023 024 [place] [facility] [address] [place], [address], 4 16:09:02 HbA1c (hemoglob in A1c), blood 2023 024 [email or web address] [facility] ([facility] [address] [place], [address], 4 09:27:05 lipid panel, serum 2023 024 [email or web address] [facility] ([facility] [address] [place], [address], 09:27:[address] referral - Please send results to Dr Vaughn Brown and, (fax) 2023 [facility], [address], [place], [address], 12:41:54 Procedures colonosco py screening (PROC) - Please send results to Dr Vaughn Brown and, (fax). For any questions , call 2023 [facility], [address] [place], [address], 12:51:53 Surgeries None recorded. Imaging None recorded. Medication Orders None recorded. Patient TargetsNo targets recorded. Patient Instructions Encounter Date Encounter Id Patient Instructions Last Modified By Organization Details Last Modified Time 05/03/2024 [id number] Acute Sinusitis: Care Instructions [facility] 10 Not available 05/03/2024 11:58:55 Reason for Referral [employer] Referral for Shahzad ateral tinnitus Patient has suffered with tinnitus x 1yr. Previous work-up without etiology. Please send results to Dr Vaughn Kilgore, (fax) Referring Physician: Vaughn Kilgore, Family Medicine, Encounter Date: 02/25/2024 Results Created Date Observation Date Name Description Value Unit Range Abnormal Flag Note LastModifiedBy Organization Detail LastModifiedTime 02/25/20 24 02/27/2024 HCV ANTIB CARLENE hep C virus Ab Non Reacti ve non reacti ve HCV antib carlene alone does not diffe renti ate betwe en previ ously resol oma infec tion and activ e infec tion. Equiv ocal and React agueda HCV antib carlene resul ts shoul d be follo wed up with an HCV RNA test to suppo rt the diagn osis of activ e HCV infec tion. Not Available [facility] ([facility]) [address] [facility], [place], [address], 02/27/2024 10:09:00 02/25/20 24 02/26/2024 ALTON EN AUTHO KARLA MATHIAS written authorizatio n Rodolfo n Author izkeara Gutierrez ed. Autho karla parker oma from DIANDRA Jos [facility] 02-25 [facility] d [facility] Not Available [facility] ([facility]) [address] [facility], [place], [address], 02/27/2024 10:09:01 02/25/20 24 02/26/2024 CBC WITH DIFFE RENTI AL/PL ATELE T WBC 6.5 x10e3 /uL 3.4-10 .8 Not Available [facility] ([facility]) [address] [facility], [place], [address], 02/28/2024 23:06:00 02/25/20 24 02/26/2024 CBC WITH DIFFE RENTI AL/PL ATELE T RBC 5.05 x10e6 /uL 3.77-5 .28 Not Available [facility] ([facility]) [address] [facility], [place], [address], 02/28/2024 23:06:00 02/25/20 24 02/26/2024 CBC WITH DIFFE RENTI AL/PL ATELE T hemoglobin 14.7 g/dL 11.1-1 5.9 Not Available [facility] ([facility]) [address] [facility], [place], [address], 02/28/2024 23:06:00 02/25/20 24 02/26/2024 CBC WITH DIFFE RENTI AL/PL ATELE T hematocrit 45.0 % 34.0-4 6.6 Not Available [facility] ([facility]) [address] [facility], [place], [address], 02/28/2024 23:06:00 02/25/20 24 02/26/2024 CBC WITH DIFFE RENTI AL/PL ATELE T MCV 89 fL 79-97 Not Available [facility] ([facility]) [address] [facility], [place], [address], 02/28/2024 23:06:00 02/25/20 24 02/26/2024 CBC WITH DIFFE RENTI AL/PL ATELE T MCH 29.1 pg 26.6-3 3.0 Not Available [facility] ([facility]) [address] [facility], [place], [address], 02/28/2024 23:06:00 02/25/20 24 02/26/2024 CBC WITH DIFFE RENTI AL/PL ATELE T MCHC 32.7 g/dL 31.5-3 5.7 Not Available [facility] ([facility]) [address] [facility], [place], [address], 02/28/2024 23:06:00 02/25/20 24 02/26/2024 CBC WITH DIFFE RENTI AL/PL ATELE T RDW 12.5 % 11.7-1 5.4 Not Available [facility] ([facility]) [address] [facility], [place], [address], 02/28/2024 23:06:00 02/25/20 24 02/26/2024 CBC WITH DIFFE RENTI AL/PL ATELE T platelets 181 x10e3 /uL 150-45 0 Not Available [facility] ([facility]) [address] [facility], [place], [address], 02/28/2024 23:06:00 02/25/20 24 02/26/2024 CBC WITH DIFFE RENTI AL/PL ATELE T neutrophils 44 % not estab. Not Available [facility] ([facility]) [address] [facility], [place], [address], 02/28/2024 23:06:00 02/25/20 24 02/26/2024 CBC WITH DIFFE RENTI AL/PL ATELE T lymphs 41 % not estab. Not Available [facility] ([facility]) [address] [facility], [place], [address], 02/28/2024 23:06:00 02/25/20 24 02/26/2024 CBC WITH DIFFE RENTI AL/PL ATELE T monocytes 8 % not estab. Not Available [facility] ([facility]) [address] [facility], [place], [address], 02/28/2024 23:06:00 02/25/20 24 02/26/2024 CBC WITH DIFFE RENTI AL/PL ATELE T eos 6 % not estab. Not Available [facility] ([facility]) [address] [facility], [place], [address], 02/28/2024 23:06:00 02/25/20 24 02/26/2024 CBC WITH DIFFE RENTI AL/PL ATELE T basos 1 % not estab. Not Available [facility] ([facility]) [address] [facility], [place], [address], 02/28/2024 23:06:00 02/25/20 24 02/26/2024 CBC WITH DIFFE RENTI AL/PL ATELE T immature cells FUR GLOSSER Not Available [facility] ([facility]) [address] [facility], [place], [address], 02/28/2024 23:06:00 02/25/20 24 02/26/2024 CBC WITH DIFFE RENTI AL/PL ATELE T neutrophils (absolute) 2.9 x10e3 /uL 1.4-7. 0 Not Available [facility] ([facility]) [address] [facility], [place], [address], 02/28/2024 23:06:00 02/25/20 24 02/26/2024 CBC WITH DIFFE RENTI AL/PL ATELE T lymphs (absolute) 2.7 x10e3 /uL 0.7-3. 1 Not Available [facility] ([facility]) [address] [facility], [place], [address], 02/28/2024 23:06:00 02/25/20 24 02/26/2024 CBC WITH DIFFE RENTI AL/PL ATELE T monocytes(ab solute) 0.5 x10e3 /uL 0.1-0. 9 Not Available [facility] ([facility]) [address] [facility], [place], [address], 02/28/2024 23:06:00 02/25/20 24 02/26/2024 CBC WITH DIFFE RENTI AL/PL ATELE T eos (absolute) 0.4 x10e3 /uL 0.0-0. 4 Not Available [facility] ([facility]) [address] [facility], [place], [address], 02/28/2024 23:06:00 02/25/20 24 02/26/2024 CBC WITH DIFFE RENTI AL/PL ATELE T baso (absolute) 0.1 x10e3 /uL 0.0-0. 2 Not Available [facility] ([facility]) [address] [facility], [place], [address], 02/28/2024 23:06:00 02/25/20 24 02/26/2024 CBC WITH DIFFE RENTI AL/PL ATELE T immature granulocytes 0 % not estab. Not Available [facility] ([facility]) [address] [facility], [place], [address], 02/28/2024 23:06:00 02/25/20 24 02/26/2024 CBC WITH DIFFE RENTI AL/PL ATELE T immature grans (abs) 0.0 x10e3 /uL 0.0-0. 1 Not Available [facility] ([facility]) [address] [facility], [place], [address], 02/28/2024 23:06:00 02/25/20 24 02/26/2024 CBC WITH DIFFE RENTI AL/PL ATELE T NRBC FUR GLOSSER Not Available [facility] ([facility]) [address] [facility], [place], [address], 02/28/2024 23:06:00 02/25/20 24 02/26/2024 CBC WITH DIFFE RENTI AL/PL ATELE T hematology comments: FUR GLOSSER Not Available [facility] ([facility]) [address] [facility], [place], [address], 02/28/2024 23:06:00 02/25/20 24 02/26/2024 COMP. METAB OLIC PANEL (14) glucose 92 mg/dL 70-99 Not Available [facility] ([facility]) [address] [facility], [place], [address], 02/28/2024 23:06:01 02/25/20 24 02/26/2024 COMP. METAB OLIC PANEL (14) BUN 19 mg/dL 6-24 Not Available [facility] ([facility]) [address] [facility], [place], [address], 02/28/2024 23:06:01 02/25/20 24 02/26/2024 COMP. METAB OLIC PANEL (14) creatinine 1.21 mg/dL 0.57-1 .00 above high normal Not Available [facility] ([facility]) [address] [facility], [place], [address], 02/28/2024 23:06:01 02/25/20 24 02/26/2024 COMP. METAB OLIC PANEL (14) eGFR 52 mL/mi n/1.7 3 >59 below low normal Not Available [facility] ([facility]) [address] [facility] [place], [address], 02/28/2024 23:06:01 02/25/20 24 02/26/2024 COMP. METAB OLIC PANEL (14) BUN/creatini ne ratio 16 9-23 Not Available [facility] ([facility]) [address] [place], [address], 02/28/2024 23:06:01 02/25/20 24 02/26/2024 COMP. METAB OLIC PANEL (14) sodium 138 mmol/ L 134-14 4 Not Available [facility] ([facility]) [address] [place] [address], [place], [address], 02/28/2024 23:06:01 02/25/20 24 02/26/2024 COMP. METAB OLIC PANEL (14) potassium 4.2 mmol/ L 3.5-5. 2 Not Available [facility] ([facility]) [address] [place] [address], [place], [address], 02/28/2024 23:06:01 02/25/20 24 02/26/2024 COMP. METAB OLIC PANEL (14) chloride 100 mmol/ L 96-106 Not Available [facility] ([facility]) [address] [place] [address], [place], [address], 02/28/2024 23:06:01 02/25/20 24 02/26/2024 COMP. METAB OLIC PANEL (14) carbon dioxide, total 23 mmol/ L 20-29 Not Available [facility] ([facility]) [address] [place] [address], [place], [address], 02/28/2024 23:06:01 02/25/20 24 02/26/2024 COMP. METAB OLIC PANEL (14) calcium 9.8 mg/dL 8.7-10 .2 Not Available [facility] ([facility]) [address] [place], [address], 02/28/2024 23:06:01 02/25/20 24 02/26/2024 COMP. METAB OLIC PANEL (14) protein, total 7.2 g/dL 6.0-8. 5 Not Available [facility] ([facility]) [address] [place], [address], 02/28/2024 23:06:01 02/25/20 24 02/26/2024 COMP. METAB OLIC PANEL (14) albumin 4.6 g/dL 3.8-4. 9 Not Available [facility] ([facility]) [address] [facility], [place], [address], 02/28/2024 23:06:01 02/25/20 24 02/26/2024 COMP. METAB OLIC PANEL (14) globulin, total 2.6 g/dL 1.5-4. 5 Not Available [facility] ([facility]) [address] [facility], [place], [address], 02/28/2024 23:06:01 02/25/20 24 02/26/2024 COMP. METAB OLIC PANEL (14) A/G ratio 1.8 1.2-2. 2 Not Available [facility] ([facility]) [address] [facility], [place], [address], 02/28/2024 23:06:01 02/25/20 24 02/26/2024 COMP. METAB OLIC PANEL (14) bilirubin, total 0.5 mg/dL 0.0-1. 2 Not Available [facility] ([facility]) [address] [facility], [place], [address], 02/28/2024 23:06:01 02/25/20 24 02/26/2024 COMP. METAB OLIC PANEL (14) alkaline phosphatase 99 IU/L 44-121 Not Available [facility] ([facility]) [address] [facility], [place], [address], 02/28/2024 23:06:01 02/25/20 24 02/26/2024 COMP. METAB OLIC PANEL (14) AST (SGOT) 20 IU/L 0-40 Not Available [facility] ([facility]) [address] [facility], [place], [address], 02/28/2024 23:06:01 02/25/20 24 02/26/2024 COMP. METAB OLIC PANEL (14) ALT (SGPT) 21 IU/L 0-32 Not Available [facility] ([facility]) [address] [facility] [place], [address], 02/28/2024 23:06:01 02/25/20 24 02/26/2024 LIPID PANEL cholesterol, total 216 mg/dL 100-19 9 above high normal Not Available [facility] ([facility]) [address] [place], [address], 02/28/2024 23:06:02 02/25/20 24 02/26/2024 LIPID PANEL triglyceride s 110 mg/dL 0-149 Not Available [facility] ([facility]) [address] [place], [address], 02/28/2024 23:06:02 02/25/20 24 02/26/2024 LIPID PANEL HDL cholesterol 58 mg/dL >39 Not Available [facility] ([facility]) [address] [place], [address], 02/28/2024 23:06:02 02/25/20 24 02/26/2024 LIPID PANEL VLDL cholesterol fiordaliza 20 mg/dL 5-40 Not Available [facility] ([facility]) [address] [place], [address], 02/28/2024 23:06:02 02/25/20 24 02/26/2024 LIPID PANEL LDL chol calc ([facility]) 138 mg/dL 0-99 above high normal Not Available [facility] ([facility]) [address] [place], [address], 02/28/2024 23:06:02 02/25/20 24 02/26/2024 LIPID PANEL comment: FUR GLOSSER Not Available [facility] ([facility]) [address] [place], [address], 02/28/2024 23:06:02 02/25/20 24 02/26/2024 HEMOG LOBIN A1C hemoglobin A1C 5.7 % 4.8-5. 6 above high normal Predi abete s: 5.7 - 6.4 Diabe carrie: >6.4 Glyce sahara contr ol for adult s with diabe carrie: <7.0 Not Available [facility] ([facility]) [address] [facility], [place], [address], 02/28/2024 23:06:02 02/25/20 24 02/26/2024 VITAM IN D, 25-HY DROXY vitamin D, 25-hydroxy 38.3 NG/mL 30.0-1 00.0 Vitam in D defic iency has been defin ed by the Insti tute of [facility] ine and an Endoc rine Socie ty pract ice guide line as a level of serum 25-OH vitam in D less than 20 ng/mL (1,2) . The Endoc rine Socie ty went on to furth er defin e vitam in D insuf ficie ncy as a level betwe en 21 and 29 ng/mL (2). 1. IOM (Inst itute of Medic ine). 2009. Dieta ry refer ence intak es for calci um and D. Beto bridges [place]: The [facility] . 2. Jeanette lainez MF, Maritza kruger [place], Karina off-F alexander i OSCAR, et al. Evalu ation , treat ment, and preve ntion of vitam in D defic iency : an Endoc rine Socie ty clini fiordaliza pract ice guide line. JCEM. 2010; 96(7) :1911 -30. Not Available [facility] ([facility]) [address] [facility], [place], [address], 02/28/2024 23:06:03 02/25/20 24 02/28/2024 LIPOP ROTEI N (A) lipoprotein (A) 24.2 nmol/ L <75.0 Note: Value s great er than or equal to 75.0 nmol/ L may indic ate an indep enden t risk facto r for CHD, but must be evalu ated with cauti on when appli ed to non-C dm bettencourt ation s due to the influ ence of clifford ic facto rs on Lp(a) acros s ethni citie s. Not Available [facility] ([facility]) [address] [facility], [place], [address], 02/28/2024 23:06:03 02/25/20 24 02/26/2024 TSH RFX ON ABNOR MAL TO FREE T4 TSH 2.910 uIU/m L 0.450- 4.500 Not Available [facility] ([facility]) [address] [facility], [place], [address], 02/28/2024 23:06:04 02/25/20 24 02/26/2024 APOLI VIJAYRO TEIN B apolipoprote in B 112 mg/dL <90 above high normal Sharron able < 90 Borde rline High 90 - 99 High 100 - 130 Very High >130 ----- ----- ----- ----- ----- ----- ----- ----- ----- ----- ASCVD RISK THERA PEUTI C TARGE T CATEG ORY APO B (mg/d L) Very High Risk <80 (if extre me risk <70) High Risk <90 Moder ate Risk <90 Not Available [facility] ([facility]) [address] [facility], [place], [address], 02/28/2024 23:06:04 02/25/20 24 02/26/2024 IGP, APT HPV,R FX 16/18 ,45 HPV aptima Negati ve negati ve This nucle ic acid ampli ficat ion test detec ts fourt een high- risk HPV types (16,1 8,31, 33,35 ,39,4 5,51, 52,56 ,58,5 9,66, 68) witho ut diffe renti ation . Not Available [facility] (Lab) [address] [facility] [address], [place], [address], 03/01/2024 16:09:02 02/25/20 24 03/01/2024 IGP, APT HPV,R FX 16/18 ,45 diagnosis: NEGATI VE FOR INTRAE PITHEL IAL LESION OR MALIGN MIGUEL ÁNGEL. Not Available [facility] (Lab) [address] [address], [place], [address], 03/01/2024 16:09:02 02/25/20 24 03/01/2024 IGP, APT HPV,R FX 16/18 ,45 specimen adequacy: Satisf actory for evalua tion. Endoce rvical compon ent may not be disti nguis hed in cases of atrop hy. Not Available [facility] (Lab) [address] [address], [place], [address], 03/01/2024 16:09:02 02/25/20 24 03/01/2024 IGP, APT HPV,R FX 16/18 ,45 clinician provided ICD10: Z12.4 Z00.0 0 Not Available [facility] (Lab) [address] [address], [place], [address], 03/01/2024 16:09:02 02/25/20 24 03/01/2024 IGP, APT HPV,R FX 16/18 ,45 performed by: Jean-Claude Nunn Sr, Cytote chnolo gist (ASCP) Not Available [facility] (Lab) [address] [address], [place], [address], 03/01/2024 16:09:02 02/25/20 24 03/01/2024 IGP, APT HPV,R FX 16/18 ,45 . . Not Available [facility] ([facility]) [address] [address], [place], [address], 03/01/2024 16:09:02 02/25/20 24 03/01/2024 IGP, APT HPV,R FX 16/18 ,45 note: The Pap smear is a screen ing test design ed to aid in the detect ion of zoë ligna nt and malig nant condi tions of the uteri ne cervi x. It is not a diagn ostic proce dure and shoul d not be used as the sole means of detec ting cervi fiordaliza cance r. Both false -posi tive and false -nega tive repor ts do occur . Not Available [facility] (Lab) [address], [place], [address], 03/01/2024 16:09:02 02/25/20 24 03/01/2024 IGP, APT HPV,R FX 16/18 ,45 test methodology: This liquid based ThinPr ep(R) pap test was screen ed with the use of an image guide chao mi Not Available [facility] (Lab) [address], [place], [address], 03/01/2024 16:09:02 07/01/20 24 07/02/2024 LIPID PANEL cholesterol, total 200 mg/dL 100-19 9 above high normal Not Available [facility] ([facility]) [address] [place], [address], 07/02/2024 09:08:52 07/01/2007/02/2024 LIPID PANEL triglyceride s 145 mg/dL 0-149 normal Not Available [facility] ([facility]) [address] [place], [address], 07/02/2024 09:08:52 07/01/2007/02/2024 LIPID PANEL HDL cholesterol 50 mg/dL >39 normal Not Available [facility] ([facility]) [address] [place], [address], 07/02/2024 09:08:52 07/01/2007/02/2024 LIPID PANEL VLDL cholesterol fiordaliza 26 mg/dL 5-40 Not Available [facility] ([facility]) [address] [place], [address], 07/02/2024 09:08:52 07/01/2007/02/2024 LIPID PANEL LDL chol calc ([facility]) 124 mg/dL 0-99 above high normal Not Available [facility] ([facility]) [address] [facility], [place], [address], 07/02/2024 09:08:52 07/01/2007/02/2024 LIPID PANEL LDL calc comment: FUR GLOSSER Not Available [facility] ([facility]) [address] [facility], [place], [address], 07/02/2024 09:08:52 07/01/2007/02/2024 HEMOG LOBIN A1C hemoglobin A1C 5.7 % 4.8-5. 6 above high normal Predi abete s: 5.7 - 6.4 Diabe carrie: >6.4 Glyce sahara contr ol for adult s with diabe carrie: <7.0 Not Available [facility] ([facility]) [address] [facility], [place], [address], 07/02/2024 09:08:56 02/25/20 24 elect rocar diogr am No observ ation record ed. [email or web address] Not Available 02/25/2024 18:40:12 03/08/20 24 body compo sitio n jaspal sis (PROC ) No observ ation record ed. [email or web address] Not Available 03/10 14:01:22 Result Notes Documentation Provider Name and Address Organization Details Recorded Time Pdf Report : NIL/HPV negative VAUGHN KILGORE, DO [address] [place] [address],[address], [place], [address], [facility] 03/01/2024 16:39:17 Problems Name Problem SNOMED Code Status Onset Date Resolution Date Notes Provider Name and Address Organization Details Recorded Time Sessile serrated polyp of colon Active 2023 Plan for repeat colonoscopy in 6mo. (09/2024) Previously performed with Dr Beard, [place]. VAUGHN BROWN AND, DO [address] [place] [address],[address], [place], [address], [facility] 09:19:16 Notes:Some problems listed i n Documents: #[id number], #[id number] could not be added to this patient's chart. Please review these documents and add these problems to the patient's chart manually as needed. Problem Notes None recorded. Procedures Surgical History Date Name Laterality Status Provider Name and Address Organization Details Recorded Time 07/01/20 24 lab draw completed Blanca Carey [facility] 07/01/2024 09:56:31 11/09/19 12 Partial Hysterectomy completed VAUGHNCAITLYN KILGORE, DO [address] [place] [address],[address], [place], [address], [facility] 02/25/2024 14:29:35 11/09/19 12 oophorectomy completed VAUGHN KILGORE, DO [address] [place] [address],[address], [place], [address], [facility] 02/25/2024 14:30:30 Imaging Results Imaging Date Name Status LastModified by Organization Details LastModified Time 02/25/2024 electrocardiogram completed [email or web address] In formation not available 02/25/2024 18:40:12 03/08/2024 body composition analysis (PROC) completed [facility] Information not available 03/10/2024 14:01:22 Procedure Notes None recorded. Medical Equipment None Reported. Allergies No known drug allergies Medications Name Sig Start Date Stop Date Status Note LastModified by Organization Details LastModified Time prednisone 20 mg tablet TAKE 2 TABLETS (40 MG) BY MOUTH DAILY FOR 5 DAYS 02/24 completed Not Available Not Available Not Available penicillin V potassium 500 mg tablet 05/03 completed Not Available Not Available Not Available ciprofloxac in 0.3 % eye drops INSTILL 1 DROP INTO AFFECTED EYE(S) BY OPHTHALMI C ROUTE EVERY 2 HOURS WHILE AWAKE FOR 2 DAYS THEN 1 DROP EVERY 4 HRS WHILE AWAKE FOR 5 DAYS 05/03 completed Not Available Not Available Not Available [...] completed Not Available Not Available Not Available peg 3350-electr olytes 236 gram-22.74 gram-6.74 gram-5.86 gram solution 05/03 completed Not Available Not Available Not Available [...] Not Available Vitals Date Recorded Body height Body mass index (BMI) Body weight Oxygen saturation Oxygen saturation in Arterial blood by Pulse oximetry Body temperature Heart rate Respiratory rate Systolic blood pressure Diastolic blood pressure Provider Name and Address Organization Details Last Updated DateTime 4 170.18 cm 26.1 kg/m2 06327.2 1 g 97 % 97 % 98.7 [degF] 78 /min 18 /min 118 mm[Hg] 79 mm[Hg] Blanca [facility] 4 09:38:28 Date Recorded Body height Heart rate Body mass index (BMI) Body weight Systolic blood pressure Diastolic blood pressure Provider Name and Address Organization Details Last Updated DateTime 4 170.18 cm 65 /min 26.2 kg/m2 83165 g 128 mm[Hg] 85 mm[Hg] [facility] 09[facility]:04 Date Recorded Body height Heart rate Respiratory rate Body temperature Oxygen saturation Oxygen saturation in Arterial blood by Pulse oximetry Body mass index (BMI) Body weight Systolic blood pressure Diastolic blood pressure Systolic blood pressure Diastolic blood pressure Provider Name and Address Organization Details Last Updated DateTime 4 170.18 cm 74 /min 16 /min 98.2 [degF] 98 % 98 % 26.2 kg/m2 72188.9 3 g 150 mm[Hg] 91 mm[Hg] 127 mm[Hg] 84 mm[Hg] Blanca Carey [facility] 16:26:46 Social History Question Answer Notes LastModified by Organizat ion Details LastModified Time Tobacco Smoking Status Never Smoker VAUGHN KILGORE, DO [address] [place] [address],[address], [place], [address], [facility] 02/25/2024 14:24:14 Do You Have An Advance Directive? Yes [email or web address] Information not available 02/25/2024 What Is Your Level Of Alcohol Consumption? Occasional [email or web address] Information not available 02/25/2024 How Many Times Per Week Do You Consume Alcohol? Less Than 1 Time Per Week [email or web address] Information not available 02/25/2024 Are You Blind Or Do You Have Difficulty Seeing? No Last Eye Exam Within The Year [email or web address] Information not available 02/25/2024 Is Blood Transfusion Acceptable In An Emergency? Yes [email or web address] Information not available 02/25/2024 What Is Your Level Of Caffeine Consumption? Occasional Tea, Not Coffee Option [email or web address] Information not available 02/25/2024 What Is Your Code Status? Full Code [email or web address] Information not available 02/25/2024 Are You Currently Employed? Yes [email or web address] Information not available 02/25/2024 Are You Deaf Or Do You Have Serious Difficulty Hearing? No [email or web address] Information not available 02/25/2024 What Type Of Diet Are You Following? REGULAR [email or web address] Information not available 02/25/2024 Do You Have A Directive To Physicians? No [email or web address] Information not available 02/25/2024 What Is The Highest Grade Or Level Of School You Have Completed Or The Highest Degree You Have Received? BU72217-8 [email or web address] Information not available 02/25/2024 Who Is Your Employer? 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 Right [email or web address] Information not available 02/25/2024 Do You Work In Healthcare? No [email or web address] Information not available 02/25/2024 Do You Have A Medical Power Of Inspector Tubes? No [email or web address] Information not available 02/25/2024 What Was The Date Of Your Most Recent Tobacco Screening? 02/25/2024 [email or web address] Information not available 02/25/2024 Do You Have A Patient Advocate? No [email or web address] Information not available 02/25/2024 What Is Your Relationship Status? ukfrhdpyxogpo82 Information not available 02/25/2024 Are You Sexually Active? Yes ljgdkhguxmoud82 Information not available 02/25/2024 Do You Use Any Illicit Or Recreational Drugs? No [email or web address] Information not available 02/25/2024 Have You Recently Traveled Abroad? No xtagsulufepvc23 Information not available 02/25/2024 Sex: Unknown Functional Status Question Answer Note LastModified by Organizat ion Details LastModified Time Do you have difficulty walking or climbing stairs? No jsmmesmzdiupv57 Information not available 02/25/2024 Do you have transportation difficulties? No vguuufdfwwfbx32 Information not available 02/25/2024 Are you able to walk? YESWOREST egrmnpvxbeovw16 Information not available 02/25/2024 Do you have difficulty doing errands alone? No phdtjgfrujzcg45 Information not available 02/25/2024 Are you able to care for yourself? Yes obndcammzlgiz99 Information not available 02/25/2024 Do you have difficulty dressing or bathing? No lqokobgihmmaq73 Information not available 02/25/2024 Mental Status None recorded. Family History Relationship Description Onset Age of this Age Resolved Age Notes LastModified by Organization Details LastModified Time Father Parkinson's disease 62 [email or web address] 10 Not available 02/25/2024 14:17:53 Medical History Condition Response Headaches Y Gynecological History Statement/Question Response STIs/STDs N If Post Menopausal, Age at Menopause 46 HPV Vaccine N Sexual Problems? Y Age at First Child 23 Sexually Active? Y Obstetrics History GPAL:G 2 P 0 0 0 0 Past Encounters Encounter ID Performer Location Encounter Start Date Encounter Closed Date Diagnosis/Indication Diagnosis SNOMED-CT Code Diagnosis ICD10 Code [id number] VAUGHN OBANDO ND, [address] [address] 02/16/2024 15:58:04 02/16/2024 18:02:26 [id number] [address] 02/25/2024 14:00:50 02/25/2024 15:41:38 Adult health examination 302576727 Z00.00 Screening for malignant neoplasm of cervix 161518450 Z12.4 Screening for malignant neoplasm of colon 808061394 Z12.11 Bilateral tinnitus 83199 70921 102 H93.13 [id number] [address] 05/03/2024 09:33:19 05/03/2024 10:06:13 Acute conjunctivitis 93425406 H10.33 Acute sinusitis 44763506 J01.21 [id number] [address] 07/01/2024 09:39:26 07/01/2024 10:00:13 Prediabetes 161090831 R73.03 Hyperlipidemia 46649021 E78.5 Health Concerns Section Related Observation LastModified by Organization Detai ls LastModified Time None Recorded Concern Status LastModified by Organization Details LastModified Time None Recorded Advance Directives Directive Y: Payers Encounter Date Sequence Insurance Name Policy Number Policy Gonzalez Covered Member ID Gonzalez Member ID Guarantor Name 02/16/2024 1 *SELF PAY* Maryse Rojas 02/25/2024 1 [facility] [id number] Jacque Rojas [id number] Jacque Rojas 05/03/2024 1 [facility] [id number] Jacque Rojas [id number] Jacque Rojas 07/01/2024 1 [facility] [id number] Jacque Rojas [id number] Jacque Rojas Notes Date Note Type Note Provider Name and Address Organization Details Recorded Time 02/16/2024 text/html Jacque is a 58yo patient who presents [...] sinusitis and tinnitus in the past. VAUGHN KILGORE, DO [address] [place] [address],[address], [place], [address], [facility] 02/17/2024 15:25:19 02/25/2024 text/html Care Management - GeneralReported bypatient.Notes:Ankush Pavon Breast Cancer Risk Assessment Data-Age:28Height:Fred ght:Age at menarche: 15Number of Children: 2Age at first child: 23Menopausal Status: MenopauseAge at Menopause: 46Breast Density:Breast Biopsy: NeverPersonal history of ovarian cancer: NUse of hormone replacement therapy: YHormone Therapy: EstrogenLength of hormone therapy: 1yrAshkenazi Inheritance: YNumber of sisters (include ages if living): 2 (63, 65)Number of maternal and paternal aunts (include ages if living): M (82D) D (90)Maternal and paternal grandmothers' ages (if living): (70)D (75)MNumber of daughters (include ages if living): 34Family history in above family members (including breast and ovarian cancer): M (50)Other family history (half sisters, cousins, nieces, male [...] exam. For health care maintenance: PAP/HPV: Due today.Mammogram: Approx 4yrs prior, due for repeat.DEXA: Due at age 66, per recent recommendations.Colon oscopy: Not previously performed, ([place])Lung Cancer Screening: Not indicated.Hep C Screening: Due today. The patient denies [...] provided. Additional records reviewed from previous provider. Medications/Allergies reviewed and entered by nursing.Vitals reviewed, as noted. VAUGHN KILGORE, DO [address] [place] [address],[address], [place], [address], [facility] 02/25/2024 18:36:55 05/03/2024 text/html {{ Jacque#}} is a {{ 58#}}yo patient who presents {{with complaints for follow-up*}} of {{ conjunctivitis#}}. She reported acute concerns of eye redness and irritation on 04/25. She was presumed to have bilateral conjunctivitis based on symptoms reported and was started on ciprofloxacin eye drops. She denied pain or vision changes at the onset of symptoms. She had mild discharge with L>R at onset of concern. She states that with antibiotic therapy, she has had improvement in discomfort, as well as in discharge. On 04/29, she reported persistent redness and requested re-evaluation. She now reports over the last few days, she has noted increased pressure in her left eye and yesterday noted increased pressure and fullness in the bilateral ears. This is similar to her previous sinusitis, but she denies fever, chills, sweats, or nasal discharge/congestion. The patient denies known h/o glaucoma. {{She* He}} {{has no known medical problems has a PMH significant for has no other significant past medical problems#}}. She has had no trauma or injury. She typically follows with [facility] and was last evaluated 03/01 for her routine eye exam. For health care maintenance, {{her* his}} last appointment was {{ 02/2024#}}. {{She* He}} is due for repeat {{annually in the fall in the winter in the spring* in the summer}}. The patient {{reports* denies}} exercising regularly. The patient {{reports* denies}} monitoring dietary intake. VAUGHNCAITLYN KILGORE, DO [address] [place] [address],[address], [place], [address], [facility] 05/03/2024 12:00:03 07/01/2024 text/html {{ Jacque#}} is a {{ 58#}}yo patient who presents for lab draw only to recheck Lipids and A1C. No complications noted, blood drawn successfully. {{She* He}} {{requests declines*} } medication refills. For health care maintenance, {{her* his}} last appointment was {{ 05/03/24#}}. {{She* He}} is due for repeat {{annually in the fall* in the winter in the spring in the summer}}. The patient {{reports* denies}} exercising regularly. The patient {{reports denies*}} monitoring dietary intake. Blanca javed, [facility] 07/01/2024 09:59:59 OBGyn Episode No OBEpisode recorded.
--- NOTE | 2024-10-17 08:02 | W.ANESCHARGE ---
Anesthesia Charges Start Date/Time Anesthesia Start Date: 10/17/24 Anesthesia Start Time: 07:24 Stop Date/Time Anesthesia Stop Date: 10/17/24 Anesthesia Stop Time: 08:00
--- NOTE | 2024-10-17 09:29 | W.ANESCHARGE ---
Anesthesia Charges Start Date/Time Anesthesia Start Date: 10/17/24 Anesthesia Start Time: 07:24 Stop Date/Time Anesthesia Stop Date: 10/17/24 Anesthesia Stop Time: 08:00
== END 2024-10-17 06:22 | disposition home or self-care (01) ==
LOC: OP CLINIC 06:22
PROVIDERS: PCP Family Medicine; Visit Provider Surgery
DX: Z12.11 Encounter for screening for malignant neoplasm of colon (principal); Z86.0100 Personal history of colon polyps, unspecified
CPT/HCPCS: 00811; 00812; 45378; J2704